=== PATIENT | female | born 1945 | race Caucasian/White ===

== ENCOUNTER 2017-06-15 13:31 | Inpatient (IN) | payer MEDICARE, OTHER ==
[2017-06-15] MEDS ORDERED: ACETAMINOPHEN 325 MG TAB PO (17:30)
[2017-06-15] MEDS ORDERED: ONDANSETRON 4 MG INJ IV ×2 (17:30→20:30)
[2017-06-15 19:27] LABS: IMMEDIATE SPIN CROSSMATCH 1 2
[2017-06-15] MEDS ORDERED: ZOLPIDEM 5 MG TAB PO (20:30)
[2017-06-15] MEDS ORDERED: morphine 2 MG INJ IV (20:30)
[2017-06-15] MEDS: SOD CHLORIDE 0.9% 250 ML IV (23:11)
[2017-06-16] MEDS: BISACODYL (EC) 5 MG TAB PO ×2 (02:20→22:37)
[2017-06-16 05:16] LABS: ADD MAN DIFF? NO
[2017-06-16 05:21] LABS: WHITE BLOOD COUNT 6.8 10^3/ul (4.8-10.8)
[2017-06-16 05:21] LABS: BASOPHIL # 0.1 10^3/ul (0.0-0.1); BASOPHILS % 0.7 % (0.0-2.0); EOSINOPHILS # 0.4 10^3/ul (0.0-0.5); HEMATOCRIT 27.1 % (37.0-47.0); HEMOGLOBIN 8.9 g/dl (12.0-16.0); LYMPHOCYTES # 1.6 10^3/ul (0.8-2.9); LYMPHOCYTES % 24.2 % (15.0-51.0); MEAN CORPUSCULAR HEMOGLOBIN 25.1 pg (29.0-33.0); MEAN CORPUSCULAR HGB CONC 32.8 g/dl (32.0-37.0); MEAN CORPUSCULAR VOLUME 76.3 fl (82.0-101.0); MEAN PLATELET VOLUME 10.2 fl (7.4-10.4); MONOCYTE # 0.5 10^3/ul (0.3-0.9); MONOCYTES % 7.8 % (0.0-11.0); NEUTROPHIL # 4.2 10^3/ul (1.6-7.5); NEUTROPHILS % 61.2 % (39.0-77.0); PLATELET COUNT 275 10^3/UL (140-415); RED BLOOD COUNT 3.55 10^6/ul (4.20-5.40); RED CELL DISTRIBUTION WIDTH 16.3 % (11.5-14.5)
[2017-06-16 06:00] LABS: ALANINE AMINOTRANSFERASE 14 IU/L (13-69); ALBUMIN 3.6 g/dl (3.3-4.9); ALBUMIN/GLOBULIN RATIO 1.02; ALKALINE PHOSPHATASE 113 IU/L (42-121); ANION GAP 15 (8-16); ASPARTATE AMINO TRANSFERASE 14 IU/L (15-46); BILIRUBIN,INDIRECT 0.1 mg/dl (0-1.1); BILIRUBIN,TOTAL 0.1 mg/dl (0.2-1.3); BLOOD UREA NITROGEN 14 mg/dl (7-20); CALCIUM 8.9 mg/dl (8.4-10.2); CARBON DIOXIDE 23 mmol/L (21-31); CHLORIDE 107 mmol/L (97-110); CREATININE 1.05 mg/dl (0.44-1.00); GLUCOSE 98 mg/dl (70-220); POTASSIUM 4.2 mmol/L (3.5-5.1); SODIUM 141 mmol/L (135-144); TOTAL PROTEIN 7.1 g/dl (6.1-8.1)
[2017-06-16 06:05] LABS: FREE THYROXINE INDEX (Calc) 2.49 ug/ml (0.65-3.89); T3 UPTAKE 40.9 % (23.5-40.5); T4 (THYROXINE) 6.1 ug/dl (5.5-11.0)
[2017-06-16] MEDS: PANTOPRAZOLE 40 MG INJ IV (06:32)
[2017-06-16] MEDS: D5W-0.45 NACL + KCL 20 MEQ 1,000 ML IV ×2 (06:33→22:38)
[2017-06-16] MEDS: LEVOTHYROXINE 100 MCG TAB PO (06:33)
[2017-06-16 06:52] LABS: ADD UMIC YES; UR ASCORBIC ACID NEGATIVE (NEGATIVE); UR BACTERIA FEW /HPF (NONE SEEN); UR BILIRUBIN (Dip) NEGATIVE (NEGATIVE); UR BLOOD (Dip) NEGATIVE (NEGATIVE); UR CLARITY SLIGHTLY CLOUDY (CLEAR); UR COLOR YELLOW (YELLOW); UR GLUCOSE (Dip) NEGATIVE (NEGATIVE); UR KETONES (Dip) NEGATIVE (NEGATIVE); UR LEUKOCYTE ESTERASE (Dip) 1+ Leu/ul (NEGATIVE); UR NITRITE (Dip) POSITIVE (NEGATIVE); UR RBC 1 /HPF (0-5); UR TOTAL PROTEIN (Dip) NEGATIVE (NEGATIVE); UR UROBILINOGEN (Dip) NEGATIVE (NEGATIVE); UR WBC 30 /HPF (0-5)
[2017-06-16 08:20] LABS: POST-TRANSFUSION BILIRUBIN 0.2 mg/dl
[2017-06-16] MEDS: CEFTRIAXONE 1 GM/50 ML (PMX) 50 ML IVPB (15:30)
[2017-06-16] MEDS ORDERED: hydrALAzine 20 MG INJ IV (16:30)
[2017-06-16] MEDS: PEG/ELECTROLYTES 4L BTL PO ×2 (22:00→22:27)
[2017-06-16] MEDS: ZOLPIDEM 5 MG TAB PO (22:47)
[2017-06-17] MEDS: D5W-0.45 NACL + KCL 20 MEQ 1,000 ML IV ×2 (02:36→21:10)
[2017-06-17] MEDS: LEVOTHYROXINE 100 MCG TAB PO (05:06)
[2017-06-17] MEDS: PANTOPRAZOLE 40 MG INJ IV ×2 (05:06→17:58)
[2017-06-17 06:33] LABS: ADD MAN DIFF? NO
[2017-06-17 06:44] LABS: BASOPHIL # 0.1 10^3/ul (0.0-0.1); BASOPHILS % 0.8 % (0.0-2.0); EOSINOPHILS # 0.1 10^3/ul (0.0-0.5); EOSINOPHILS % 2.3 % (0.0-7.0); HEMATOCRIT 28.3 % (37.0-47.0); HEMOGLOBIN 9.2 g/dl (12.0-16.0); LYMPHOCYTES # 2.2 10^3/ul (0.8-2.9); LYMPHOCYTES % 35.7 % (15.0-51.0); MEAN CORPUSCULAR HEMOGLOBIN 24.7 pg (29.0-33.0); MEAN CORPUSCULAR HGB CONC 32.5 g/dl (32.0-37.0); MEAN CORPUSCULAR VOLUME 75.9 fl (82.0-101.0); MEAN PLATELET VOLUME 10.3 fl (7.4-10.4); MONOCYTE # 0.7 10^3/ul (0.3-0.9); MONOCYTES % 11.3 % (0.0-11.0); NEUTROPHILS % 49.7 % (39.0-77.0); PLATELET COUNT 281 10^3/UL (140-415); RED BLOOD COUNT 3.73 10^6/ul (4.20-5.40); RETICULOCYTE COUNT # 0.044 X10^6 (0.020-0.110); RETICULOCYTE COUNT % 1.2 % (0.5-1.5); RETICULOCYTE RBC 3.73
[2017-06-17 06:59] LABS: LACTATE DEHYDROGENASE 371 IU/L (313-618)
[2017-06-17 07:04] LABS: ANION GAP 17 (8-16); BLOOD UREA NITROGEN 8 mg/dl (7-20); CALCIUM 9.1 mg/dl (8.4-10.2); CARBON DIOXIDE 24 mmol/L (21-31); CHLORIDE 105 mmol/L (97-110); CREATININE 0.85 mg/dl (0.44-1.00); GLUCOSE 96 mg/dl (70-220); POTASSIUM 3.6 mmol/L (3.5-5.1); SODIUM 142 mmol/L (135-144)
[2017-06-17 07:34] LABS: FERRITIN 7.5 ng/ml (11.1-264.0)
[2017-06-17] MEDS: LABETALOL HCL 20MG INJ (11:56)
[2017-06-17] MEDS: PROPOFOL 60 ML (11:56)
[2017-06-17] MEDS: CEFTRIAXONE 1 GM/50 ML (PMX) 50 ML IVPB (15:28)
[2017-06-17] MEDS: ZOLPIDEM 5 MG TAB PO (21:28)
[2017-06-18] MEDS: LEVOTHYROXINE 100 MCG TAB PO (05:36)
[2017-06-18] MEDS: PANTOPRAZOLE 40 MG INJ IV (05:36)
[2017-06-18 07:09] LABS: ADD MAN DIFF? NO
[2017-06-18] MEDS: D5W-0.45 NACL + KCL 20 MEQ 1,000 ML IV (07:12)
[2017-06-18 07:16] LABS: BASOPHIL # 0.1 10^3/ul (0.0-0.1); BASOPHILS % 0.8 % (0.0-2.0); EOSINOPHILS # 0.2 10^3/ul (0.0-0.5); EOSINOPHILS % 3.2 % (0.0-7.0); HEMATOCRIT 27.3 % (37.0-47.0); HEMOGLOBIN 8.9 g/dl (12.0-16.0); LYMPHOCYTES # 2.1 10^3/ul (0.8-2.9); LYMPHOCYTES % 32.3 % (15.0-51.0); MEAN CORPUSCULAR HEMOGLOBIN 24.6 pg (29.0-33.0); MEAN CORPUSCULAR HGB CONC 32.6 g/dl (32.0-37.0); MEAN CORPUSCULAR VOLUME 75.4 fl (82.0-101.0); MEAN PLATELET VOLUME 9.9 fl (7.4-10.4); MONOCYTE # 0.6 10^3/ul (0.3-0.9); MONOCYTES % 9.8 % (0.0-11.0); NEUTROPHIL # 3.5 10^3/ul (1.6-7.5); NEUTROPHILS % 53.6 % (39.0-77.0); PLATELET COUNT 284 10^3/UL (140-415); RED BLOOD COUNT 3.62 10^6/ul (4.20-5.40); RED CELL DISTRIBUTION WIDTH 17.6 % (11.5-14.5)
[2017-06-18 07:16] LABS: WHITE BLOOD COUNT 6.6 10^3/ul (4.8-10.8)
[2017-06-18 07:34] LABS: ANION GAP 15 (8-16); BLOOD UREA NITROGEN 9 mg/dl (7-20); CARBON DIOXIDE 25 mmol/L (21-31); CHLORIDE 105 mmol/L (97-110); CREATININE 0.89 mg/dl (0.44-1.00); GLUCOSE 96 mg/dl (70-220); POTASSIUM 3.6 mmol/L (3.5-5.1); SODIUM 141 mmol/L (135-144)
[2017-06-18] MEDS: SOD FERRIC GLUC COMPLX 125 MG in SOD CHLORIDE 0.9% 100 ML IVPB (15:02)
[2017-06-18] MEDS: CEFTRIAXONE 1 GM/50 ML (PMX) 50 ML IVPB (15:30)
== END 2017-06-18 17:44 | disposition home or self-care (01) | DRG 812 ==
LOC: E/R 13:31 → PP2 17:20
PROC: 0DBK8ZX Excision of Ascending Colon, Via Natural or Artificial Opening Endoscopic, Diagnostic (ICD-10-PCS; principal; 2017-06-17 11:00)
PROC: 0DBL8ZX Excision of Transverse Colon, Via Natural or Artificial Opening Endoscopic, Diagnostic (ICD-10-PCS; 2017-06-17 11:00)
PROC: 0DBP8ZX Excision of Rectum, Via Natural or Artificial Opening Endoscopic, Diagnostic (ICD-10-PCS; 2017-06-17 11:00)
PROC: 0DBM8ZX Excision of Descending Colon, Via Natural or Artificial Opening Endoscopic, Diagnostic (ICD-10-PCS; 2017-06-17 11:00)
PROC: 0DB68ZX Excision of Stomach, Via Natural or Artificial Opening Endoscopic, Diagnostic (ICD-10-PCS; 2017-06-17 11:00)
PROC: 0DB98ZX Excision of Duodenum, Via Natural or Artificial Opening Endoscopic, Diagnostic (ICD-10-PCS; 2017-06-17 11:00)
PROC: 30233N1 Transfusion of Nonautologous Red Blood Cells into Peripheral Vein, Percutaneous Approach (ICD-10-PCS; 2017-06-17 11:20)
DX: D50.0 Iron deficiency anemia secondary to blood loss (chronic) (principal); N39.0 Urinary tract infection, site not specified; I10 Essential (primary) hypertension; F17.200 Nicotine dependence, unspecified, uncomplicated; J45.909 Unspecified asthma, uncomplicated; E78.00 Pure hypercholesterolemia, unspecified; G89.29 Other chronic pain; K29.70 Gastritis, unspecified, without bleeding; K31.7 Polyp of stomach and duodenum; M54.5 Low back pain; Z86.73 Personal history of transient ischemic attack (TIA), and cerebral infarction without residual deficits; Z85.3 Personal history of malignant neoplasm of breast; Z79.82 Long term (current) use of aspirin; Z90.12 Acquired absence of left breast and nipple
CPT/HCPCS: 36430; 80048; 80053; 81001; 82607; 82728; 83615; 84436; 84443; 84479; 85025; 85045; 86078; 86850; 86900; 86901; 86920; 87086; 88305; 99291-25

== ENCOUNTER → 2017-06-15 | Outpatient (CLI) | payer MEDICARE, OTHER ==
[2017-06-15 12:47] LABS: ADD MAN DIFF? NO
[2017-06-15 12:50] LABS: WHITE BLOOD COUNT 5.6 10^3/ul (4.8-10.8)
[2017-06-15 12:50] LABS: ABNORMAL IP MESSAGE 1; BASOPHILS % 0.7 % (0.0-2.0); EOSINOPHILS # 0.5 10^3/ul (0.0-0.5); EOSINOPHILS % 8.6 % (0.0-7.0); HEMATOCRIT 21.8 % (37.0-47.0); LYMPHOCYTES # 1.7 10^3/ul (0.8-2.9); LYMPHOCYTES % 30.6 % (15.0-51.0); MEAN CORPUSCULAR HEMOGLOBIN 23.4 pg (29.0-33.0); MEAN CORPUSCULAR HGB CONC 30.7 g/dl (32.0-37.0); MEAN CORPUSCULAR VOLUME 76.2 fl (82.0-101.0); MEAN PLATELET VOLUME 9.2 fl (7.4-10.4); MONOCYTE # 0.4 10^3/ul (0.3-0.9); MONOCYTES % 7.9 % (0.0-11.0); NEUTROPHIL # 2.9 10^3/ul (1.6-7.5); PLATELET COUNT 267 10^3/UL (140-415); RED BLOOD COUNT 2.86 10^6/ul (4.20-5.40); RED CELL DISTRIBUTION WIDTH 16.2 % (11.5-14.5)
[2017-06-15 13:08] LABS: HEMOGLOBIN 6.7 g/dl (12.0-16.0); PATH REVIEW? YES; POSITIVE DIFF @See below
[2017-06-15 13:11] LABS: ALANINE AMINOTRANSFERASE 18 IU/L (13-69); ALBUMIN 4.1 g/dl (3.3-4.9); ALKALINE PHOSPHATASE 114 IU/L (42-121); ANION GAP 16 (8-16); ASPARTATE AMINO TRANSFERASE 15 IU/L (15-46); BLOOD UREA NITROGEN 18 mg/dl (7-20); CARBON DIOXIDE 24 mmol/L (21-31); CHLORIDE 104 mmol/L (97-110); CREATININE 1.32 mg/dl (0.44-1.00); GLUCOSE 88 mg/dl (70-220); POTASSIUM 4.3 mmol/L (3.5-5.1); SODIUM 140 mmol/L (135-144); TOTAL PROTEIN 7.8 g/dl (6.1-8.1)
[2017-06-15 14:06] LABS: CARCINOEMBRYONIC ANTIGEN 3.9 ng/ml (0.0-5.0)
[2017-06-16 14:22] LABS: PATH REVIEW CH
== END | disposition home or self-care (01) ==
LOC: RAD 12:14
DX: D64.9 Anemia, unspecified (principal); J45.909 Unspecified asthma, uncomplicated
CPT/HCPCS: 71046; 80053; 82378; 85025

== ENCOUNTER 2018-02-25 14:01 | Emergency (ER) | payer MEDICARE, OTHER ==
[2018-02-25] MEDS: ACETAMINOPHEN 325 MG TAB PO (14:44)
== END 2018-02-25 15:51 | disposition home or self-care (01) ==
LOC: FTE 14:01
DX: S42.034A Nondisplaced fracture of lateral end of right clavicle, initial encounter for closed fracture (principal); I10 Essential (primary) hypertension; F17.210 Nicotine dependence, cigarettes, uncomplicated; J45.909 Unspecified asthma, uncomplicated; W18.39XA Other fall on same level, initial encounter; Y92.9 Unspecified place or not applicable
CPT/HCPCS: 73000; 73060-RT; 99284-25

== ENCOUNTER 2018-04-18 06:16 | Day surgery (SDC) | payer MEDICARE, OTHER ==
[2018-04-18] MEDS ORDERED: SOD CHLORIDE 0.9% 1,000 ML IV (07:00)
[2018-04-18] MEDS ORDERED: CEFAZOLIN 2 GM/50 ML (PMX) 50 ML IVPB (07:00)
[2018-04-18] MEDS ORDERED: ACETAMINOPHEN 500 MG TAB (07:06)
[2018-04-18 07:39] LABS: ADD MAN DIFF? NO
[2018-04-18] MEDS: ACETAMINOPHEN 500 MG TAB PO (07:41)
[2018-04-18 07:44] LABS: WHITE BLOOD COUNT 6.9 10^3/ul (4.8-10.8)
[2018-04-18 07:44] LABS: BASOPHIL # 0.1 10^3/ul (0.0-0.1); EOSINOPHILS # 0.6 10^3/ul (0.0-0.5); HEMATOCRIT 34.5 % (37.0-47.0); LYMPHOCYTES # 1.8 10^3/ul (0.8-2.9); LYMPHOCYTES % 26.3 % (15.0-51.0); MEAN CORPUSCULAR HEMOGLOBIN 29.7 pg (29.0-33.0); MEAN CORPUSCULAR HGB CONC 31.9 g/dl (32.0-37.0); MEAN CORPUSCULAR VOLUME 93.2 fl (82.0-101.0); MEAN PLATELET VOLUME 10.1 fl (7.4-10.4); MONOCYTE # 0.6 10^3/ul (0.3-0.9); MONOCYTES % 8.1 % (0.0-11.0); NEUTROPHIL # 3.9 10^3/ul (1.6-7.5); NEUTROPHILS % 56.2 % (39.0-77.0); PLATELET COUNT 224 10^3/UL (140-415); RED CELL DISTRIBUTION WIDTH 15.9 % (11.5-14.5)
[2018-04-18 08:05] LABS: ALANINE AMINOTRANSFERASE 10 IU/L (13-69); ALBUMIN 3.8 g/dl (3.3-4.9); ALBUMIN/GLOBULIN RATIO 1.05; ALKALINE PHOSPHATASE 125 IU/L (42-121); ANION GAP 10 (5-13); ASPARTATE AMINO TRANSFERASE 19 IU/L (15-46); BILIRUBIN,INDIRECT 0.1 mg/dl (0-1.1); BILIRUBIN,TOTAL 0.1 mg/dl (0.2-1.3); BLOOD UREA NITROGEN 17 mg/dl (7-20); CALCIUM 9.7 mg/dl (8.4-10.2); CARBON DIOXIDE 24 mmol/L (21-31); CHLORIDE 111 mmol/L (97-110); GLUCOSE 96 mg/dl (70-220); INR 0.86; PARTIAL THROMBOPLASTIN TIME 26.5 Sec (23.0-35.0); POTASSIUM 3.8 mmol/L (3.5-5.1); PROTIME 11.8 Sec (11.9-14.9); PT RATIO 0.9; TOTAL PROTEIN 7.4 g/dl (6.1-8.1)
[2018-04-18 08:11] LABS: CREATININE 1.01 mg/dl (0.44-1.00); SODIUM 145 mmol/L (135-144)
[2018-04-18] MEDS ORDERED: PROPOFOL 20 ML (08:55)
[2018-04-18] MEDS ORDERED: MIDAZOLAM 1 MG/ML 2 ML INJ (08:55)
[2018-04-18] MEDS ORDERED: CEFAZOLIN 1 GM INJ (08:55)
[2018-04-18] MEDS ORDERED: LIDOCAINE 2% (SDV) 5 ML INJ (08:55)
[2018-04-18] MEDS ORDERED: FENTAnyl 50 MCG/ML VIAL (08:56)
[2018-04-18] MEDS ORDERED: DIPHENHYDRAMINE 50 MG INJ IV (09:00)
[2018-04-18] MEDS ORDERED: LABETALOL HCL 20MG INJ IV (09:00)
[2018-04-18] MEDS ORDERED: HYDROmorphONE 1 MG/5 ML IV SYRINGE IV (09:00)
[2018-04-18] MEDS ORDERED: ONDANSETRON 4 MG INJ IV (09:00)
[2018-04-18] MEDS ORDERED: OXYCODONE/ACETAMINOPHEN (5/325) TAB PO (09:00)
[2018-04-18] MEDS ORDERED: EPHEDrine SULFATE 50 MG/5 ML SYG IV (09:00)
[2018-04-18] MEDS ORDERED: FENTAnyl 50 MCG/ML VIAL IV (09:00)
[2018-04-18] MEDS ORDERED: hydrALAzine 20 MG INJ IV (09:00)
[2018-04-18] MEDS ORDERED: ATROPINE 1 MG/10 ML SYRINGE IV (09:00)
[2018-04-18] MEDS ORDERED: ALBUTEROL 0.083% (NEB) 2.5 MG/3 ML AMP HHN (09:00)
[2018-04-18] MEDS ORDERED: METOCLOPRAMIDE 10 MG INJ (09:40)
[2018-04-18] MEDS: LIDOCAINE 1%/EPI (1:100,000) (MDV) 20 ML (10:04)
== END 2018-04-18 14:47 | disposition home or self-care (01) ==
LOC: SDS 06:16
DX: L30.8 Other specified dermatitis (principal); N64.89 Other specified disorders of breast; I10 Essential (primary) hypertension; E11.9 Type 2 diabetes mellitus without complications; E78.5 Hyperlipidemia, unspecified
CPT/HCPCS: 19101; 71045; 80053; 85025; 85610; 85730; 88305; 93005

== ENCOUNTER → 2018-05-03 | Outpatient (CLI) | payer MEDICARE, OTHER | END | disposition home or self-care (01) | LOC: VAS 14:59 | DX: I63.9 Cerebral infarction, unspecified (principal) | CPT/HCPCS: 93880 ==

== ENCOUNTER 2018-05-26 17:39 | Emergency (ER) | payer MEDICARE, OTHER ==
[2018-05-26] MEDS: KETOROLAC 15 MG INJ IM (21:27)
[2018-05-26] MEDS: HYDROCODONE/APAP (5/325) TAB PO (21:28)
== END 2018-05-27 00:32 | disposition home or self-care (01) ==
LOC: E/R 05-27 00:32
DX: S32.010A Wedge compression fracture of first lumbar vertebra, initial encounter for closed fracture (principal); S42.001G Fracture of unspecified part of right clavicle, subsequent encounter for fracture with delayed healing; S22.41XD Multiple fractures of ribs, right side, subsequent encounter for fracture with routine healing; I10 Essential (primary) hypertension; F17.210 Nicotine dependence, cigarettes, uncomplicated; X58.XXXA Exposure to other specified factors, initial encounter; Y92.9 Unspecified place or not applicable
CPT/HCPCS: 71250; 96372; 99285-25